=== PATIENT | female | born 1995 ===

== ENCOUNTER 2020-01-08 17:40 | Outpatient (REF) | payer MEDICAID, SELFPAY | END 2020-01-08 17:41 | disposition home or self-care (01) | LOC: HO.LAB 17:40 | PROVIDERS: Visit Provider Internal Medicine | DX: Z20.828 Contact with and (suspected) exposure to other viral communicable diseases (principal) | CPT/HCPCS: C9803; U0003 ==

== ENCOUNTER 2020-06-09 11:27 | Emergency (ER) | payer MEDICAID, SELFPAY ==
[2020-06-09 11:28] VITALS: BP 121/58; PULSE 77; RESP 18; TEMP 36.7; O2SAT 97; BMI 22.8
[2020-06-09 11:42] VITALS: BP 109/69; PULSE 86; RESP 18; TEMP 36.7; O2SAT 98; BMI 22.8
[2020-06-09] MEDS: EPINEPHrine 1 MG/ML VIAL 0.3 MG IM (12:02)
[2020-06-09] MEDS: Famotidine/PF 20 MG/2 ML VIAL IVPUSH (12:07)
[2020-06-09 13:00] VITALS: BP 111/68; PULSE 92; RESP 12; O2SAT 98
--- NOTE | 2020-06-09 13:04 | PC.NURSE ---
AIRWAY PATENT, PT IN NAD AT THIS TIME. REPORTS IMPROVEMENT WITH SWALLOWING.
--- NOTE | 2020-06-09 13:11 | ED_ITS ---
HPI - General Adult General Chief complaint: Allergic Reaction Stated complaint: allergic reation Time Seen by Provider: 06/09/20 11:45 Source: patient Mode of arrival: ambulatory Limitations: no limitations History of Present Illness HPI narrative: 25-year-old female who presents emergency department for evaluation of allergic reaction with difficulty swallowing. The patient states that 11:00 a.m. she started sneezing and then developed a scratchy sensation in her throat. She then had difficulty swallowing. She states that she has had similar reactions in the past but they usually occur after eating food that she is allergic to (fruits, nuts). She did not have any food to eat prior to the onset of her symptoms. She states that the difficulty swallowing got worse. She took a Zyrtec at home with no improvement of her symptoms. She states that she often hives and pruritic rash but she did not develop the symptoms. The patient would have given herself an EpiPen at home but she could not find her E piPen therefore she came to the emergency department for evaluation. She denied being sick prior to the onset of her symptoms. She denied fever, chills, chest pain, shortness of breath or dyspnea on exertion. Related Data Previous Rx's Medication Instructions Recorded epinephrine [EpiPen 2-Be] 0.3 mg IM Q10M PRN #2 ea 06/09/20 prednisone 60 mg PO DAILY 4 Days #12 tab 06/09/20 Allergies Allergy/AdvReac Type Severity Reaction Status Date / Time Penicillins [PENICILLINS] Allergy Intermediate UNKNOWN Unverified 11/16/19 16:31 Sulfa (Sulfonamide Allergy Intermediate UNKNOWN Unverified 11/16/19 16:31 Antibiotics) [SULFA (SULFONAMIDE ANTIBIOTICS)] sulfamethoxazole Allergy Intermediate UNKNOWN Unverified 11/16/19 16:31 [From BACTRIM] trimethoprim [From BACTRIM] Allergy Intermediate UNKNOWN Unverified 11/16/19 16:31 FRUIT, PITTED Allergy Intermediate UNKNOWN Uncoded 11/16/19 16:31 Amoxicillin Allergy Unknown Uncoded 11/06/11 00:00 Bacitracin Allergy Unknown Uncoded 11/06/11 00:00 Penicillin Allergy Unknown Uncoded 11/06/11 00:00 Review of Systems Review of Systems: Yes all other systems are reviewed and are negative PMFSH Past Medical History PMFSH Narrative: The patient has no medical problems except for allergies to food. She denies tobacco, alcohol use, she occasionally smokes marijuana. Medical History (Updated 06/09/20 @ 13:19 by Jose M Sanchez MD) Anaphylaxis Anxiety Social History Social History Smoking Status: Never smoker Use of substances other than those prescribed or required for medical reasons: Yes Substance Use Type: Marijuana Advance Directives: No Advance Directives Information Provided: Yes Physical Exam Vital Signs: Vital Signs: Last Vital Signs Temp 98.0 F 06/09/20 11:42 Pulse 92 06/09/20 13:00 Resp 12 06/09/20 13:00 BP 111/68 06/09/20 13:00 Pulse Ox 98 06/09/20 13:00 Body Mass Index 22.8 Const: General: cooperative and healthy appearing Orientation/consciousness: oriented to person and oriented to place Limitations: no limitations HENMT: Head: Yes normal to inspection, Yes normocephalic and Yes atraumatic Ears: external ears normal General nose exam: Normal external nose present Face and sinus: Yes normal facial exam Mouth: Normal oral and palatal mucosa present Throat: Yes other (Asymmetric swelling on the left soft palate compared to the right) Eyes: Periorbital: periorbital findings normal Eyelids: Yes eyelids normal Conjunctivae: conjunctivae normal Sclerae: sclerae normal Corneas: corneas normal Pupils: Equal, round and reactive pupils present Direct Ophthalmoscopy: normal light reflex Neck: Neck: Yes full ROM, Yes no lymphadenopathy, Yes no meningeal signs, Yes trachea midline and Yes supple Chest: Chest palpation & inspection: normal inspection of the chest and normal palpation of entire chest wall Resp: Effort & Inspection: normal respiratory effort and able to speak in complete sentences Auscultation: clear to auscultation bilaterally Cardio: Rate: regular rate Rhythm: regular rhythm Heart sounds: S1 normal heart sound present, S2 normal heart sound present and no murmurs GI: Inspection: Yes normal to inspection Palpation (GI): Soft to palpation, nontender, no guarding, not rigid and No hepatosplenomegaly present : General: Yes no CVA tenderness Back/Spine/Pelvis: Back: no CVA tenderness Cervical Spine: normal cervical lordosis Thoracic/Lumbar Spine: thoracic and lumbar spine normal to inspection Skin: Lesions: no lesions Rashes: no rashes Wounds: no wounds Neuro: General: oriented to person, oriented to place and no meningeal signs Cranial nerves: Yes CN's II-XII intact bilaterally and Yes Equal, round and reactive pupils present Cognition (Neuro): normal cognition Motor exam (neuro): 5/5 motor strength present throughout Extrem: General: Yes normal to inspection and Yes full ROM Psych: Appearance: well kempt Mental Status: mental status grossly normal Speech and movement: Normal speech and movement present Affect: normal affect Attitude: cooperative Thought process: Normal thought process present Thought content: Normal thought content present Course Course Course Narrative: 25-year-old female with a history who allergies presents emergency department for evaluation of sneezing and difficulty swallowing that occurred at around 11:00 a.m.. Patient took Zyrtec with no relief for symptoms. On examination she does have some asymmetric swelling of her soft palate left greater than right. Her presentation was concerning for possible allergic reaction therefore she was treated with epinephrine 0.3 mg IM, Solu-Medrol 125 mg IV and Pepcid 20 mg IV. 1315: The patient is feeling significantly better after the above treatment, re-evaluation reveals resolution of the asymmetric soft tissue swelling. The patient is able eat and drink without difficulty. The patient will be discharged home with a prescription for an EpiPen and prednisone. Discharge Plan Discharge Clinical Impression: Allergic reaction Qualifiers: Encounter type: initial encounter Qualified Code(s): T78.40XA - Allergy, unspecified, initial encounter Anaphylaxis Qualifiers: Encounter type: initial encounter Qualified Code(s): T78.2XXA - Anaphylactic shock, unspecified, initial encounter Patient Disposition: Home, Self-Care Instructions: Anaphylaxis (ED) Additional Instructions: Your presentation is consistent with an allergic reaction/anaphylaxis. Take prednisone 20 mg pills, 3 pills once a day for 4 days, take your 1st dose tomorrow, since you were treated here in the emergency department with Solu- Medrol (steroid). You can take Zyrtec or Benadryl as needed for itchiness. If your symptoms return give yourself an EpiPen and call 911 and return to the emergency department. Follow-up with your doctor in 2 days. Please return to the emergency department if your symptoms get worse or if you develop any symptoms that are concerning to you. Prescriptions: New epinephrine [EpiPen 2-Be] 0.3 mg/0.3 mL auto-injector 0.3 mg IM Q10M PRN (Reason: anaphylaxis) Qty: 2 RF: 0 prednisone 20 mg tablet 60 mg PO DAILY 4 Days Qty: 12 RF: 0
--- NOTE | 2020-06-09 13:32 | PC.NURSE ---
PT COMBATIVE DURING ATTEMPT TO REDRAW LABWORK.
== END 2020-06-09 13:49 | disposition home or self-care (01) ==
PROVIDERS: Emergency Provider Emergency Medicine Emergency Medical Services
DX: T78.40XA Allergy, unspecified, initial encounter (principal); T78.2XXA Anaphylactic shock, unspecified, initial encounter; X58.XXXA Exposure to other specified factors, initial encounter; F12.90 Cannabis use, unspecified, uncomplicated
CPT/HCPCS: 96365; 96372; 96375; 99284; J0171; J2930

== ENCOUNTER 2021-02-26 13:12 | Outpatient (REF) | payer MEDICAID, SELFPAY ==
[2021-02-26 16:41] LABS: COVID-19 Test Positive (Negative)
== END 2021-02-26 13:13 | disposition home or self-care (01) ==
LOC: HO.LAB 13:12
PROVIDERS: Visit Provider Internal Medicine
DX: Z20.822 Contact with and (suspected) exposure to COVID-19 (principal)
CPT/HCPCS: 36415; 87635; C9803

== ENCOUNTER 2021-03-20 17:10 | Emergency (ER) | payer MEDICAID, SELFPAY ==
[2021-03-20 17:17] VITALS: BP 129/75; PULSE 131; RESP 18; TEMP 38.3; O2SAT 100; BMI 23.8
[2021-03-20 17:57] LABS: IDNOW Serial# 9DD0AD1C
[2021-03-20 17:58] LABS: Strep A Nucleic Acid Negative (Negative)
--- NOTE | 2021-03-20 18:10 | ECG_ITS ---
Test Reason : tachycardia Blood Pressure : / mmHG Vent. Rate : 121 BPM Atrial Rate : 121 BPM P-R Int : 120 ms QRS Dur : 092 ms QT Int : 302 ms P-R-T Axes : 058 078 012 degrees QTc Int : 428 ms Sinus tachycardia T wave abnormality, consider inferior ischemia T wave abnormality, consider anterior ischemia Abnormal ECG No previous ECGs available Referred By: Basilia Paige Electronically Signed By:Yossi Castillo
[2021-03-20] MEDS: Ibuprofen 600 MG TABLET PO (19:02)
[2021-03-20] MEDS: Ondansetron ODT 4 MG TAB.RAPDIS TRANSLINGU (19:02)
--- NOTE | 2021-03-20 19:34 | ED_ITS ---
HPI - General Adult General Chief complaint: General Medical Stated complaint: Sore throat/fever Time Seen by Provider: 03/20/21 18:10 Source: patient Mode of arrival: ambulatory History of Present Illness HPI narrative: 26-year-old female with a past medical history anxiety, COVID-19 positive 02/26/2021 presenting to the ED complaining of throat pain and swelling with painful/difficulty swallowing since today. Also reports fever. Reports history of tonsil stones. Denies ear pain, cough, chest pain, shortness of breath, LE edema, calf pain, history of clots, oral OCPs, cigarette smoking Onset (ago): hour(s) Related Data Previous Rx's Medication Instructions Recorded epinephrine 0.3 mg/0.3 mL 0.3 mg (0.3 mL) IM Q10M PRN #2 ea 06/09/20 injection, auto-injector (EpiPen 2-Be) prednisone 20 mg tablet 60 mg PO DAILY 4 Days #12 tab 06/09/20 cefdinir 300 mg capsule 300 mg PO BID 10 Days #20 cap 03/20/21 Allergies Allergy/AdvReac Type Severity Reaction Status Date / Time Penicillins [PENICILLINS] Allergy Intermediate UNKNOWN Unverified 11/16/19 16:31 Sulfa (Sulfonamide Allergy Intermediate UNKNOWN Unverified 11/16/19 16:31 Antibiotics) [SULFA (SULFONAMIDE ANTIBIOTICS)] sulfamethoxazole Allergy Intermediate UNKNOWN Unverified 11/16/19 16:31 [From BACTRIM] trimethoprim [From BACTRIM] Allergy Intermediate UNKNOWN Unverified 11/16/19 16:31 FRUIT, PITTED Allergy Intermediate UNKNOWN Uncoded 11/16/19 16:31 Amoxicillin Allergy Unknown Anaphylaxis Uncoded 03/20/21 17:22 Penicillin Allergy Unknown Anaphylaxis Uncoded 03/20/21 17:22 Review of Systems Review of Systems: Constitutional: + Fever, No Chills ENT/Mouth: No Ear Pain, No Nasal Congestion, + sore throat, No Rhinorrhea, + Painful Swallowing Cardiovascular: No Chest Pain, No SOB Respiratory: No Cough, No Sputum, No Wheezing Gastrointestinal: No Nausea, No Vomiting, No Diarrhea, No Constipation, No Abdominal pain Genitourinary: No Dysuria, No Urinary Frequency, No Hematuria, No Flank Pain Musculoskeletal: No joint pain, No Myalgias, No Joint Swelling Skin: No Skin Lesions, No rash Neuro: No Weakness Psych: +Anxiety Yes all other systems are reviewed and are negative [facility] Past Medical History Attestation statement: The following information was validated with the patient. Medical History Anaphylaxis Anxiety Social History Social History Substance Use Type: Marijuana Advance Directives: No Advance Directives Information Provided: No Physical Exam Vital Signs: Vital Signs: Last Vital Signs Temp 99.3 F 03/20/21 20:12 Pulse 94 03/20/21 20:12 Resp 16 03/20/21 20:12 BP 109/60 03/20/21 20:12 Pulse Ox 97 03/20/21 20:12 BMI result Body Mass Index 23.8 Const: General: cooperative, healthy appearing, no acute distress, alert, awake and anxious Orientation/consciousness: patient oriented x3 Limitations: no limitations HENMT: Head: Yes normal to inspection and Yes atraumatic Ears: hearing grossly normal bilaterally, external ears normal, TM's normal bilaterally and mastoids normal General nose exam: Normal external nose present Face and sinus: Yes normal facial exam Throat: Yes uvula midline, Yes abnormal tonsil (Bilateral tonsillar erythema, swelling, and exudates), No peritonsillar mass and No uvula laterally displaced Eyes: General: appearance normal, both eyes and all related structures EOM: EOMs intact bilaterally Neck: Other: + bilateral submandibular lymphadenopathy Neck: Yes normal visual inspection Resp: Effort & Inspection: normal respiratory effort, not labored, no stridor and not tachypneic Auscultation: clear to auscultation bilaterally, no rales, no rhonchi and no wheezes Cardio: Rate: regular rate and tachycardic Heart sounds: S1 normal heart sound present and S2 normal heart sound present GI: Inspection: Yes normal to inspection Palpation (GI): Soft to palpation, nontender, no guarding and not rigid Skin: Rashes: no rashes Wounds: no wounds Neuro: General: patient oriented x3 Gait exam (Neuro): Normal gait present Extrem: General: Yes normal to inspection, Yes no pedal edema and Yes no calf tenderness Course Course Course Narrative: --vital signs improved after fever reduction. Results discussed with patient including worrisome signs and symptoms and strict return precautions including persistent fever, increasing swelling, inability to swallow to return to the ED immediately. She verbalized understanding and feels safe for discharge home at this time Medical Decision Making MDM Narrative Medical decision making narrative: 26-year-old female with a past medical history anxiety, COVID-19 positive 02/26/2021 presenting to the ED complaining of throat pain and swelling with painful/difficulty swallowing since today. On exam febrile, anxious, tachycardic likely from anxiety/fever, nontoxic appearing, bilateral tonsillar erythema, swelling, and exudates. No stridor, talking in complete sentences, no drooling, handling secretions. Exam consistent with strep pharyngitis. Low concern for PE/ACS. Low concern for severe sepsis Plan: EKG, Rapid strep, PO Motrin, p.o. Decadron, re-evaluate Medical Records Medical records reviewed: Yes I reviewed the patient's medical records. Lab Data Lab results reviewed: Yes I reviewed the patient's lab results. Labs: Lab Results 03/20/21 Range/Units 17:32 S. pyogenes GrpA ZULY Negative (Negative) ECG Data Attestation: I personally reviewed and interpreted this ECG as follows: Interpretation: EKG sinus tachycardia at a rate of 121. Nonspecific T-wave abnormality, T-wave inversions in lead 3 and V3. QTC 428 Discharge Plan Discharge Clinical Impression: Strep pharyngitis Patient Disposition: Home, Self-Care Instructions: Strep Throat (ED) Additional Instructions: You clinically have strep throat. Your given an oral steroid today in the emergency department this will help with swelling. Cefdinir is an antibiotic please take as prescribed. In addition take Tylenol and Motrin every 4-6 hours as directed on the bottle for fever and swelling/pain If her fevers not coming down with medication, pain becomes unbearable, you have increasing swelling, you are unable to eat or drink please return to the emergency department Rest. Stay hydrated. Follow up with her doctor Prescriptions: New cefdinir 300 mg capsule 300 mg PO BID 10 Days Qty: 20 RF: 0 No Action epinephrine [EpiPen 2-Be] 0.3 mg/0.3 mL auto-injector 0.3 mg IM Q10M PRN (Reason: anaphylaxis) Qty: 2 RF: 0 prednisone 20 mg tablet 60 mg PO DAILY 4 Days Qty: 12 RF: 0 Referrals: Physician,Unknown J [Primary Care Provider] - 3 days
[2021-03-20] MEDS: dexAMETHasone sod phosphate 10 MG/ML VIAL IVPUSH (20:11)
[2021-03-20 20:12] VITALS: BP 109/60; PULSE 94; RESP 16; TEMP 37.4; O2SAT 97
== END 2021-03-20 20:43 | disposition home or self-care (01) ==
PROVIDERS: Emergency Provider Internal Medicine
DX: J02.0 Streptococcal pharyngitis (principal); R50.9 Fever, unspecified
CPT/HCPCS: 36415; 87651; 93005; 99283; 99284; J1100

== ENCOUNTER 2022-07-13 10:25 | Emergency (ER) | payer OTHER, SELFPAY ==
--- NOTE | ~2022-07-13 | XR_ITS ---
EXAMINATION: XR CHEST CLINICAL INFORMATION: Cough and chest pain COMPARISON: None available. TECHNIQUE: 2 views of the chest were obtained. FINDINGS: No significant abnormality is noted involving the heart, lungs, mediastinum, bony thorax or soft tissues. XR/XR chest 2V IMPRESSION: Unremarkable chest examination.
--- NOTE | 2022-07-13 10:31 | ECG_ITS ---
Test Reason : chest pain Blood Pressure : / mmHG Vent. Rate : 060 BPM Atrial Rate : 060 BPM P-R Int : 132 ms QRS Dur : 092 ms QT Int : 400 ms P-R-T Axes : 071 084 064 degrees QTc Int : 400 ms Normal sinus rhythm Normal ECG When compared with ECG of 20-MAR-2021 18:49, Vent. rate has decreased BY 61 BPM T wave inversion no longer evident in Inferior leads Nonspecific T wave abnormality no longer evident in Lateral leads Referred By: Generic ED Physician Electronically Signed By:Yossi Castillo
[2022-07-13 10:46] LABS: MANUAL DIFF FLAG NO
[2022-07-13 10:52] LABS: Basophils Absolute Auto 0.1 X10*3/uL (0.0-0.2); Basophils Percent Auto 0.7 % (0-2); Eosinophils Absolute Auto 0.2 X10*3/uL (0.0-0.4); Eosinophils Percent Auto 2.2 % (0-4); Hematocrit 39.3 % (37.0-47.0); Hemoglobin 13.2 g/dl (12.0-16.0); Imm Gran Abs Auto 0.02 X10*3/uL (0.00-0.03); Imm Gran Pct Auto 0.2 % (0.0-0.4); Lymphocytes Absolute Auto 1.3 X10*3/uL (1.2-4.9); Mean Corpuscular HGB Conc 33.6 g/dl (31.0-35.0); Mean Corpuscular Hemoglobin 30.2 pg (27.0-33.0); Mean Corpuscular Volume 89.9 fL (80.0-98.0); Mean Platelet Volume 10.3 fL (9.4-12.3); Monocytes Absolute Auto 0.7 X10*3/uL (0.1-1.2); Monocytes Percent Auto 8.8 % (2-11); Neutrophils Percent Auto 72.1 % (45-73); Platelet Count 277 X10*3/uL (160-400); Red Blood Count 4.37 X10*6/uL (4.20-5.50); Red Cell Distribution Width 11.8 % (11.0-16.0); White Blood Count 8.3 X10*3/uL (4.8-10.8)
--- NOTE | 2022-07-13 10:59 | ED.CHESTPAIN ---
HPI - Chest Pain General Chief Complaint: General Medical <Sherice Colin NP - Last Filed: 07/13/22 11:03> Stated Complaint: Chest pain <Sherice Colin NP - Last Filed: 07/13/22 11:03> Time Seen by Provider: 07/13/22 11:26 <Sherice Colin NP - Last Filed: 07/13/22 11:03> Source: patient <PAUL Murry - Last Filed: 07/13/22 13:28> Mode of arrival: ambulatory <PAUL Murry - Last Filed: 07/13/22 13:28> Limitations: no limitations <PAUL Murry - Last Filed: 07/13/22 13:28> History of Present Illness HPI narrative: Patient is a 27 year old assigned female at with no reported medical history presenting to the emergency department today with a cough and congestion. Patient states that for the last week she has had a cough and congestion that is not getting better. Patient denies any dizziness, lightheadedness, abdominal pain, nausea, vomiting, fever, chills, blurry vision, double vision, loss of vision, chest pain, difficulty breathing, shortness of breath, back pain, night sweats, pain with urination, increased urinary frequency, increased urinary urgency, blood in her urine or stool, syncope or a near syncopal episode, recent trauma or falls, bowel incontinence, bladder incontinence, bowel retention, bladder retention, or any other complaints at this time. <PAUL Murry - Last Filed: 07/13/22 13:28> Related Data Home Medications: Previous Rx's Medication Instructions Recorded epinephrine 0.3 mg/0.3 mL 0.3 mg (0.3 mL) IM Q10M PRN 06/09/20 injection, auto-injector (EpiPen anaphylaxis #2 [id number] [id number]) prednisone 20 mg tablet 60 mg PO DAILY 4 days #12 tabs 06/09/20 cefdinir 300 mg capsule 300 mg PO BID 10 days #20 caps 03/20/21 doxycycline hyclate 100 mg tablet 100 mg PO BID 7 days #14 tabs 07/13/22 prednisone 20 mg tablet 20 mg PO DAILY 7 days #7 tabs 07/13/22 <Sheirce Colin NP - Last Filed: 07/13/22 11:03> Allergies/Adverse Reactions: Allergies Allergy/AdvReac Type Severity Reaction Status Date / Time Penicillins [PENICILLINS] Allergy Intermediate UNKNOWN Verified 07/13/22 11:00 Sulfa (Sulfonamide Allergy Intermediate UNKNOWN Verified 07/13/22 11:00 Antibiotics) [SULFA (SULFONAMIDE ANTIBIOTICS)] sulfamethoxazole Allergy Intermediate UNKNOWN Verified 07/13/22 11:00 [From BACTRIM] trimethoprim [From BACTRIM] Allergy Intermediate UNKNOWN Unverified 11/16/19 16:31 FRUIT, PITTED Allergy Intermediate UNKNOWN Uncoded 11/16/19 16:31 Amoxicillin Allergy Unknown Anaphylaxis Uncoded 03/20/21 17:22 Penicillin Allergy Unknown Anaphylaxis Uncoded 03/20/21 17:22 <Sherice Colin NP - Last Filed: 07/13/22 11:03> Review of Systems Constitutional: Constitutional: Reports no additional constitutional complaints, Denies chills, Denies fever(s) and Denies night sweats <PAUL Murry Last Filed: 07/13/22 13:28> Eyes: Eyes: Reports no additional eye complaints, Denies blurry vision, Denies change in vision, Denies diplopia, Denies eye discharge, Denies loss of vision and Denies eye pain <PAUL Murry Last Filed: 07/13/22 13:28> ENT: Denies dizziness and Reports nasal congestion <PAUL Murry - Last Filed: 07/13/22 13:28> Cardiovascular: Cardiovascular: Reports no additional cardiovascular complaints, Denies chest pain, Denies lightheadedness, Denies Loss of Consciousness and Denies dyspnea <PAUL Murry Last Filed: 07/13/22 13:28> Respiratory: Respiratory: Reports no additional respiratory complaints, Reports cough and Denies dyspnea <PAUL Murry Last Filed: 07/13/22 13:28> Gastrointestinal: Gastrointestinal: Reports no additional gastrointestinal complaints, Denies abdominal pain, Denies melena, Denies hematochezia, Denies change in bowel habits and Denies change in stool character <PAUL Murry Last Filed: 07/13/22 13:28> Genitourinary: Genitourinary: Denies hematuria, Denies urinary frequency, Denies dysuria, Denies urinary incontinence, Denies urinary hesitancy and Denies urinary urgency <PAUL Murry - Last Filed: 07/13/22 13:28> Musculoskeletal: Musculoskeletal: Reports no additional musculoskeletal complaints, Denies numbness and Denies tingling <PAUL Murry - Last Filed: 07/13/22 13:28> Neurologic: Denies dizziness, Denies loss of vision, Denies numbness and Denies tingling <PAUL Murry - Last Filed: 07/13/22 13:28> Psychiatric: Psychiatric: Reports no additional psychiatric complaints <PAUL Murry - Last Filed: 07/13/22 13:28> Endocrine: Endocrine: Reports no additional endocrine complaints <PAUL Murry - Last Filed: 07/13/22 13:28> Hematologic/Lymphatic: Hematologic/Lymphatic: Reports no additional hematologic/lymphatic complaints <PAUL Murry - Last Filed: 07/13/22 13:28> Allergic/Immunologic: Allergic/Immunologic: Reports no additional allergic/immunologic complaints <PAUL Murry - Last Filed: 07/13/22 13:28> [facility] Past Medical History Attestation statement: The following information was validated with the patient. <PAUL Murry - Last Filed: 07/13/22 13:28> Source: old records reviewed and nursing notes reviewed <PAUL Murry - Last Filed: 07/13/22 13:28> Medical History: Medical History Anaphylaxis Anxiety <Sherice Colin NP - Last Filed: 07/13/22 11:03> Social History Social History: Social History Smoked in Last 30 Days: No Use of substances other than those prescribed or required for medical reasons: Yes Substance Use Type: Marijuana Substance Use Frequency: Occasionally Advance Directives: No Advance Directives Information Provided: Yes <Sherice Colin NP - Last Filed: 07/13/22 11:03> Physical Exam Vital Signs: Vital Signs: Last Vital Signs Temp 97.6 F 07/13/22 11:42 Pulse 71 07/13/22 11:42 Resp 18 07/13/22 11:42 BP 109/72 07/13/22 11:42 Pulse Ox 99 07/13/22 11:42 O2 Del Method Room Air 07/13/22 11:42 BMI result Body Mass Index 20.1 <Sherice Colin NP - Last Filed: 07/13/22 11:03> Vital Signs: Last Vital Signs Temp 97.6 F 07/13/22 11:42 Pulse 71 07/13/22 11:42 Resp 18 07/13/22 11:42 BP 109/72 07/13/22 11:42 Pulse Ox 99 07/13/22 11:42 O2 Del Method Room Air 07/13/22 11:42 BMI result Body Mass Index 20.1 <PAUL Murry - Last Filed: 07/13/22 13:28> Const: General: cooperative, no acute distress, alert and awake <PAUL Murry - Last Filed: 07/13/22 13:28> Nutritional Appearance: well nourished <PAUL Murry - Last Filed: 07/13/22 13:28> Orientation/consciousness: patient oriented x3 <PAUL Murry - Last Filed: 07/13/22 13:28> Limitations: no limitations <PAUL Murry - Last Filed: 07/13/22 13:28> HEENT: Head: Yes normal to inspection and Yes atraumatic <PAUL Murry - Last Filed: 07/13/22 13:28> Ears: hearing grossly normal bilaterally and external ears normal <PAUL Murry - Last Filed: 07/13/22 13:28> General nose exam: Normal external nose present, no nasal discharge noted and no epistaxis <PAUL Murry - Last Filed: 07/13/22 13:28> Face and sinus: Yes normal facial exam, No abrasion and No laceration <PAUL Murry - Last Filed: 07/13/22 13:28> Mouth: Normal oral and palatal mucosa present, no drooling and no muffled voice <PAUL Murry - Last Filed: 07/13/22 13:28> Eyes: General: appearance normal, both eyes and all related structures <Jacqueline Mclean PA - Last Filed: 07/13/22 13:28> Periorbital: periorbital findings normal <Jacqueline Mclean PA - Last Filed: 07/13/22 13:28> Eyelids: Yes eyelids normal <Jacqueline Mclean PA - Last Filed: 07/13/22 13:28> Conjunctivae: conjunctivae normal <Jacqueline Mclean PA - Last Filed: 07/13/22 13:28> Pupils: Equal, round and reactive pupils present <Jacqueline Mclean PA - Last Filed: 07/13/22 13:28> EOM: EOMs intact bilaterally <Jacqueline Mclean PA - Last Filed: 07/13/22 13:28> Neck: Neck: Yes normal visual inspection, Yes full ROM and Yes no lymphadenopathy <Jacqueline Mclean PA - Last Filed: 07/13/22 13:28> Chest: Chest palpation & inspection: normal inspection of the chest <Jacqueline Mclean PA - Last Filed: 07/13/22 13:28> Resp: Effort & Inspection: normal respiratory effort and able to speak in complete sentences <Jacqueline Mclean PA - Last Filed: 07/13/22 13:28> Auscultation: clear to auscultation bilaterally <Jacqueline Mclean PA - Last Filed: 07/13/22 13:28> GI: Inspection: Yes normal to inspection <Jacqueline Mclean PA - Last Filed: 07/13/22 13:28> Neuro: General: patient oriented x3 and moves all extremities <Jacqueline Mclean PA - Last Filed: 07/13/22 13:28> Cranial nerves: Yes Equal, round and reactive pupils present <Jacqueline Mclean PA - Last Filed: 07/13/22 13:28> Cognition (Neuro): normal cognition <Jacqueline Mclean PA - Last Filed: 07/13/22 13:28> Motor exam (neuro): 5/5 motor strength present throughout <Jacqueline Mclean PA - Last Filed: 07/13/22 13:28> Sensory Exam: Normal double simultaneous stimulation for sensation <Jacqueline Mclean PA - Last Filed: 07/13/22 13:28> Coordination: [id number] test normal <PAUL Murry - Last Filed: 07/13/22 13:28> Extrem: General: Yes normal to inspection, Yes full ROM and Yes capillary refill normal <PAUL Murry - Last Filed: 07/13/22 13:28> Psych: Appearance: grossly normal <PAUL Murry - Last Filed: 07/13/22 13:28> Mental Status: mental status grossly normal <PAUL Murry - Last Filed: 07/13/22 13:28> Affect: normal affect <PAUL Murry - Last Filed: 07/13/22 13:28> Attitude: cooperative <PAUL Murry - Last Filed: 07/13/22 13:28> Thought process: Normal thought process present <PAUL Murry - Last Filed: 07/13/22 13:28> Thought content: Normal thought content present <PAUL Murry - Last Filed: 07/13/22 13:28> Insight: Good insight present (Psych) <PAUL Murry - Last Filed: 07/13/22 13:28> Course Course Course Narrative: This is rapid medical exam. Deferred additional HPI, ROS, PE to primary provider. 27 yo female with no known medical history here with complaints of fevers (tactile), chills, body aches, weakness, cough, congestion, sneezing x 1 week. Now chest discomfort x 3 days. Will obtain EKG, CXR, labs, covid/flu/rsv testing. No OCP use, no recent travel, no leg swelling or leg pain. VSS <Sherice Colin NP - Last Filed: 07/13/22 11:03> Medical Decision Making Medical Decision Making MDM Narrative: Patient is a 27 year old assigned female at with no reported medical history presenting to the emergency department today with nasal congestion and a cough. Patient's physical exam was unremarkable. Patient's blood work was unremarkable. Patient's EKG was unremarkable. Patient's chest x-ray showed no acute process. I explained my physical exam findings as well as all test results to the patient. I answered all questions asked by the patient. I stressed the importance of the patient taking her medication as prescribed. I stressed the importance of the patient following up with her primary care provider. I stressed the importance of the patient returning to the emergency department immediately if her symptoms were to worsen or if she were to develop any dizziness, shortness of breath, difficulty breathing, chest pain, blurry vision, loss of vision, nausea, vomiting, abdominal pain, fever, chills, back pain, or any other complaints. Patient verbalized agreement and understanding with this treatment plan and discharge. <PAUL Murry - Last Filed: 07/13/22 13:28> Differential Diagnosis Differential Diagnoses: The differential diagnosis associated with the presentation includes <PAUL Murry - Last Filed: 07/13/22 13:28> URI <PAUL Murry - Last Filed: 07/13/22 13:28> Lab Data MDM Lab Attestation statement: I reviewed the patient's lab results. <PAUL Murry - Last Filed: 07/13/22 13:28> Result Diagrams: 07/13/22 10:43 07/13/22 10:43 <Sherice Colin NP - Last Filed: 07/13/22 11:03> Labs: Lab Results 07/13/22 07/13/22 07/13/22 Range/Units 10:43 10:43 10:43 WBC 8.3 (4.8-10.8) X10*3/uL RBC 4.37 (4.20-5.50) X10*6/uL Hgb 13.2 (12.0-16.0) g/dl Hct 39.3 (37.0-47.0) % MCV 89.9 (80.0-98.0) fL MCH 30.2 (27.0-33.0) pg MCHC 33.6 (31.0-35.0) g/dl RDW 11.8 (11.0-16.0) % Plt Count 277 (160-400) X10*3/uL MPV 10.3 (9.4-12.3) fL Immature Gran % (Auto) 0.2 (0.0-0.4) % Neut % (Auto) 72.1 (45-73) % Lymph % (Auto) 16.0 L (20-40) % [place] % (Auto) 8.8 (2-11) % Eos % (Auto) 2.2 (0-4) % Baso % (Auto) 0.7 (0-2) % Lymph # (Auto) 1.3 (1.2-4.9) X10*3/uL [place] # (Auto) 0.7 (0.1-1.2) X10*3/uL Eos # (Auto) 0.2 (0.0-0.4) X10*3/uL Baso # (Auto) 0.1 (0.0-0.2) X10*3/uL Abs Immat Gran (auto) 0.02 (0.00-0.03) X10*3/uL Absolute Neuts (auto) 6.0 (2.0-8.3) x10*3/uL Absolute Nucleated RBC 0.000 (0.0-0.012) X10*3/uL Nucleated RBC % (auto) 0.0 (0.0-0.2) /100WBC Sodium 138 (135-145) mmol/L Potassium 3.8 (3.3-5.1) mmol/L Chloride 107 (96-108) mmol/L Carbon Dioxide 26 (22-29) mmol/L Anion Gap 9 L (12-20) BUN 11 (9-16) mg/dL Creatinine 0.80 (0.5-1.4) mg/dL Estim Creat Clear Calc TNP Estimated GFR > 60 Random Glucose 92 (60-115) mg/dL Calcium 9.0 (8.4-10.2) mg/dL Troponin I High Sens < 2.7 (<3.5-17.0) ng/L Influenza Type A (PCR) (Negative) Influenza Type B (PCR) (Negative) RSV RNA Qual (PCR) (Negative) SARS-CoV-2 RNA (RT-PCR) (Negative) 07/13/22 Range/Units 11:05 WBC (4.8-10.8) X10*3/uL RBC (4.20-5.50) X10*6/uL Hgb (12.0-16.0) g/dl Hct (37.0-47.0) % MCV (80.0-98.0) fL MCH (27.0-33.0) pg MCHC (31.0-35.0) g/dl RDW (11.0-16.0) % Plt Count (160-400) X10*3/uL MPV (9.4-12.3) fL Immature Gran % (Auto) (0.0-0.4) % Neut % (Auto) (45-73) % Lymph % (Auto) (20-40) % [place] % (Auto) (2-11) % Eos % (Auto) (0-4) % Baso % (Auto) (0-2) % Lymph # (Auto) (1.2-4.9) X10*3/uL [place] # (Auto) (0.1-1.2) X10*3/uL Eos # (Auto) (0.0-0.4) X10*3/uL Baso # (Auto) (0.0-0.2) X10*3/uL Abs Immat Gran (auto) (0.00-0.03) X10*3/uL Absolute Neuts (auto) (2.0-8.3) x10*3/uL Absolute Nucleated RBC (0.0-0.012) X10*3/uL Nucleated RBC % (auto) (0.0-0.2) /100WBC Sodium (135-145) mmol/L Potassium (3.3-5.1) mmol/L Chloride (96-108) mmol/L Carbon Dioxide (22-29) mmol/L Anion Gap (12-20) BUN (9-16) mg/dL Creatinine (0.5-1.4) mg/dL Estim Creat Clear Calc Estimated GFR Random Glucose (60-115) mg/dL Calcium (8.4-10.2) mg/dL Troponin I High Sens (<3.5-17.0) ng/L Influenza Type A (PCR) NEGATIVE (Negative) Influenza Type B (PCR) NEGATIVE (Negative) RSV RNA Qual (PCR) NEGATIVE (Negative) SARS-CoV-2 RNA (RT-PCR) NEGATIVE (Negative) <Sherice Colin, MANUFACTURING SPECIALIST - Last Filed: 07/13/22 11:03> Lab Results 07/13/22 07/13/22 07/13/22 Range/Units 10:43 10:43 10:43 WBC 8.3 (4.8-10.8) X10*3/uL RBC 4.37 (4.20-5.50) X10*6/uL Hgb 13.2 (12.0-16.0) g/dl Hct 39.3 (37.0-47.0) % MCV 89.9 (80.0-98.0) fL MCH 30.2 (27.0-33.0) pg MCHC 33.6 (31.0-35.0) g/dl RDW 11.8 (11.0-16.0) % Plt Count 277 (160-400) X10*3/uL MPV 10.3 (9.4-12.3) fL Immature Gran % (Auto) 0.2 (0.0-0.4) % Neut % (Auto) 72.1 (45-73) % Lymph % (Auto) 16.0 L (20-40) % [place] % (Auto) 8.8 (2-11) % Eos % (Auto) 2.2 (0-4) % Baso % (Auto) 0.7 (0-2) % Lymph # (Auto) 1.3 (1.2-4.9) X10*3/uL [place] # (Auto) 0.7 (0.1-1.2) X10*3/uL Eos # (Auto) 0.2 (0.0-0.4) X10*3/uL Baso # (Auto) 0.1 (0.0-0.2) X10*3/uL Abs Immat Gran (auto) 0.02 (0.00-0.03) X10*3/uL Absolute Neuts (auto) 6.0 (2.0-8.3) x10*3/uL Absolute Nucleated RBC 0.000 (0.0-0.012) X10*3/uL Nucleated RBC % (auto) 0.0 (0.0-0.2) /100WBC Sodium 138 (135-145) mmol/L Potassium 3.8 (3.3-5.1) mmol/L Chloride 107 (96-108) mmol/L Carbon Dioxide 26 (22-29) mmol/L Anion Gap 9 L (12-20) BUN 11 (9-16) mg/dL Creatinine 0.80 (0.5-1.4) mg/dL Estim Creat Clear Calc TNP Estimated GFR > 60 Random Glucose 92 (60-115) mg/dL Calcium 9.0 (8.4-10.2) mg/dL Troponin I High Sens < 2.7 (<3.5-17.0) ng/L Influenza Type A (PCR) (Negative) Influenza Type B (PCR) (Negative) RSV RNA Qual (PCR) (Negative) SARS-CoV-2 RNA (RT-PCR) (Negative) 07/13/22 Range/Units 11:05 WBC (4.8-10.8) X10*3/uL RBC (4.20-5.50) X10*6/uL Hgb (12.0-16.0) g/dl Hct (37.0-47.0) % MCV (80.0-98.0) fL MCH (27.0-33.0) pg MCHC (31.0-35.0) g/dl RDW (11.0-16.0) % Plt Count (160-400) X10*3/uL MPV (9.4-12.3) fL Immature Gran % (Auto) (0.0-0.4) % Neut % (Auto) (45-73) % Lymph % (Auto) (20-40) % [place] % (Auto) (2-11) % Eos % (Auto) (0-4) % Baso % (Auto) (0-2) % Lymph # (Auto) (1.2-4.9) X10*3/uL [place] # (Auto) (0.1-1.2) X10*3/uL Eos # (Auto) (0.0-0.4) X10*3/uL Baso # (Auto) (0.0-0.2) X10*3/uL Abs Immat Gran (auto) (0.00-0.03) X10*3/uL Absolute Neuts (auto) (2.0-8.3) x10*3/uL Absolute Nucleated RBC (0.0-0.012) X10*3/uL Nucleated RBC % (auto) (0.0-0.2) /100WBC Sodium (135-145) mmol/L Potassium (3.3-5.1) mmol/L Chloride (96-108) mmol/L Carbon Dioxide (22-29) mmol/L Anion Gap (12-20) BUN (9-16) mg/dL Creatinine (0.5-1.4) mg/dL Estim Creat Clear Calc Estimated GFR Random Glucose (60-115) mg/dL Calcium (8.4-10.2) mg/dL Troponin I High Sens (<3.5-17.0) ng/L Influenza Type A (PCR) NEGATIVE (Negative) Influenza Type B (PCR) NEGATIVE (Negative) RSV RNA Qual (PCR) NEGATIVE (Negative) SARS-CoV-2 RNA (RT-PCR) NEGATIVE (Negative) <PAUL Murry - Last Filed: 07/13/22 13:28> Independent Interpretation I performed an independent interpretation of an: EKG and Plain X-Ray <PAUL Murry - Last Filed: 07/13/22 13:28> Interpretation: Vent. Rate: 060 BPM ? ? Atrial Rate: 060 BPM P-R Int: 132 ms? QRS Dur: 092 ms QT Int: 400 ms ? ? ? P-R-T Axes: 071 084 064 degrees QTc Int: 400 ms ? Normal sinus rhythm Normal ECG When compared with ECG of 20-MAR-2021 18:49, Vent. rate has decreased BY? 61 BPM T wave inversion no longer evident in Inferior leads Nonspecific T wave abnormality no longer evident in Lateral leads DD/ 1035 My interpretation is in agreement with the radiologist's impression of this imaging study. EXAMINATION: XR CHEST CLINICAL INFORMATION: Cough and chest pain COMPARISON: None available. TECHNIQUE: 2 views of the chest were obtained. FINDINGS: No significant abnormality is noted involving the heart, lungs, mediastinum, bony thorax or soft tissues. XR/XR chest 2V IMPRESSION: Unremarkable chest examination. Dictated By: Tre Ruiz MD Signed By: Electronically signed by Tre Ruiz MD 07/13/22 1216 <PAUL Murry - Last Filed: 07/13/22 13:28> Discharge Plan Discharge Clinical Impression: Upper respiratory infection <Sherice Colin NP - Last Filed: 07/13/22 11:03> Patient Disposition: Home, Self-Care <Sherice Colin NP - Last Filed: 07/13/22 11:03> Instructions: Upper Respiratory Infection (DC) <Sherice Colin NP - Last Filed: 07/13/22 11:03> Additional Instructions: Follow up with your primary care provider. Return to the emergency department immediately if your symptoms worsen or if you develop any dizziness, shortness of breath, difficulty breathing, chest pain, blurry vision, loss of vision, nausea, vomiting, abdominal pain, fever, chills, back pain, or any other complaints. <Sherice Colin NP - Last Filed: 07/13/22 11:03> Prescriptions: New prednisone 20 mg tablet 20 mg PO DAILY 7 Days Qty: 7 0RF doxycycline hyclate 100 mg tablet 100 mg PO BID 7 Days Qty: 14 0RF No Action epinephrine [EpiPen 2-Be] 0.3 mg/0.3 mL auto-injector 0.3 mg IM Q10M PRN (Reason: anaphylaxis) Qty: 2 0RF Rx Instructions: for 2 doses prednisone 20 mg tablet 60 mg PO DAILY 4 Days Qty: 12 0RF cefdinir 300 mg capsule 300 mg PO BID 10 Days Qty: 20 0RF <Sherice Colin NP - Last Filed: 07/13/22 11:03> Referrals: [facility] [place] [facility] [Provider Group] (Call to establish and follow up with a primary care provider. If you already have a primary care provider.) [facility] [place] [facility] [Provider [facility]] (Call to establish and follow up with a primary care provider. If you already have a primary care provider.) [facility] [place] [facility] [Provider [facility]] (Call to establish and follow up with a primary care provider. If you already have a primary care provider.) <Sherice Colin NP - Last Filed: 07/13/22 11:03> Stand Alone Forms: Work/School Release <Sherice Colin NP - Last Filed: 07/13/22 11:03> Interventions: ED Discharge Assessment Last Done: 07/13/22 12:14 <Sherice Colin NP - Last Filed: 07/13/22 11:03> Discharge Date/Time: 07/13/22 12:15 <Sherice Colin NP - Last Filed: 07/13/22 11:03> Print Language: Welsh <Sherice Colin NP - Last Filed: 07/13/22 11:03>
[2022-07-13 11:00] VITALS: BP 132/82; PULSE 82; RESP 18; TEMP 36.8; O2SAT 99; BMI 20.1
[2022-07-13 11:02] LABS: Anion Gap 9 (12-20); Blood Urea Nitrogen 11 mg/dL (9-16); Carbon Dioxide 26 mmol/L (22-29); Chloride 107 mmol/L (96-108); Estimated Glomerular Filt Rate > 60; Glucose Random 92 mg/dL (60-115); Potassium 3.8 mmol/L (3.3-5.1); Sodium 138 mmol/L (135-145)
--- NOTE | 2022-07-13 11:06 | MHC.EDTECH ---
covid swab collected and sent to lab
[2022-07-13 11:11] LABS: Troponin-I High Sensitivity < 2.7 ng/L (<3.5-17.0)
[2022-07-13 11:42] VITALS: BP 109/72; PULSE 71; RESP 18; TEMP 36.4; O2SAT 99
[2022-07-13 11:50] LABS: Influenza A PCR NEGATIVE (Negative); Influenza B PCR NEGATIVE (Negative); Resp Syncy Virus RNA Qual PCR NEGATIVE (Negative); SARS COV2 PCR INHOUSE NEGATIVE (Negative)
== END 2022-07-13 12:15 | disposition home or self-care (01) ==
PROVIDERS: Nurse Practitioner Family; Emergency Provider Student in an Organized Health Care Education/Training Program
DX: J06.9 Acute upper respiratory infection, unspecified (principal); R05.9 Cough, unspecified; R07.89 Other chest pain; Z20.822 Contact with and (suspected) exposure to COVID-19; Z20.828 Contact with and (suspected) exposure to other viral communicable diseases; Z79.899 Other long term (current) drug therapy
CPT/HCPCS: 0241U; 36415; 71046; 80048; 84484; 85025; 93005; 99284